=== PATIENT | female | born 1985 | race Two or more races ===

== ENCOUNTER 2016-08-25 20:29 | Emergency (ER) | payer MEDICAID ==
[~2016-08-25] VITALS: Ht 162.6 cm; Wt 62.3 kg
[~2016-08-25 20:29] MED LIST: FLUO20CA8 PO; OLAN2.5T5 PO
[2016-08-25 20:46] VITALS: BP 112/65
== END 2016-08-25 22:08 | disposition home or self-care (01) ==
LOC: ED 22:02
DX: J02.8 Acute pharyngitis due to other specified organisms (principal); B97.89 Other viral agents as the cause of diseases classified elsewhere
CPT/HCPCS: 36415; 71020; 86308; 99285